=== PATIENT | male | born 1975 | race Caucasian/White ===

== ENCOUNTER 2020-11-24 08:29 | Emergency (ER) | payer SELFPAY ==
[~2020-11-24] VITALS: Ht 167.6 cm; Wt 82.1 kg
[2020-11-24 08:40] VITALS: BP 135/86
[2020-11-24] MEDS ORDERED: IBUP-2213 PO (10:24)
[2020-11-24 10:35] VITALS: BP 135/86
== END 2020-11-24 10:35 | disposition home or self-care (01) ==
LOC: MED 08:29
DX: R07.81 Pleurodynia (principal); Z79.899 Other long term (current) drug therapy
CPT/HCPCS: 71101; 99283

== ENCOUNTER 2023-02-27 06:45 | Emergency (ER) | payer MEDICAID ==
[~2023-02-27] VITALS: Ht 167.6 cm; Wt 86.2 kg
[~2023-02-27 06:45] MED LIST: IBUP-2213 PO
[2023-02-27 06:50] VITALS: BP 151/85; PULSE 84; RESP 18; TEMP 97.6; O2SAT 97
[2023-02-27] MEDS ORDERED: DEXAMETHASONE 10 MG/ML VIAL PO ONE (07:15)
[2023-02-27 07:46] VITALS: O2SAT 100
[2023-02-27] MEDS ORDERED: BENZ-300 PO (07:46)
[2023-02-27] MEDS ORDERED: ALBU0.0912 IH (07:46)
[2023-02-27 07:57] VITALS: BP 151/85; PULSE 18; RESP 18; TEMP 97.6
== END 2023-02-27 08:01 | disposition home or self-care (01) ==
LOC: MED 06:45
DX: J02.9 Acute pharyngitis, unspecified (principal); Z79.899 Other long term (current) drug therapy; Z79.1 Long term (current) use of non-steroidal anti-inflammatories (NSAID)
CPT/HCPCS: 70360; 99283; J1100